=== PATIENT | female | born 1980 | race African-American/Black ===

== ENCOUNTER 2021-07-20 01:41 | Emergency (ER) | payer OTHER ==
[~2021-07-20] VITALS: Ht 152.4 cm; Wt 70.0 kg
[~2021-07-20 01:41] MED LIST: SEE MED SHEET
[2021-07-20] MEDS ORDERED: HYDROCODONE/ACETAMINOPHEN 5/325MG TABLET PO STA (03:16)
[2021-07-20] MEDS ORDERED: PROCHLORPERAZINE 10MG/2ML VIAL IM ONE (03:30)
[2021-07-20] MEDS ORDERED: DIPHENHYDRAMINE 50MG/ML VIAL IV ONE (04:00)
[2021-07-20] MEDS ORDERED: PROCHLORPERAZINE 10MG/2ML VIAL IV PRN (04:00)
[2021-07-20] MEDS ORDERED: KETOROLAC 30MG/ML VIAL IV ONE (04:00)
[2021-07-20] MEDS ORDERED: MAGNESIUM 2 G PREMIX 50 ML IV ONE (04:00)
[2021-07-20 04:08] LABS: BASOPHILS % 0.7 % (0.0-2.0); EOSINOPHILS % 0.5 % (0.0-5.0); HEMATOCRIT. 35.4 % (36.0-48.0); HEMOGLOBIN. 12.3 g/dL (12.0-16.0); LYMPHOCYTES % 32.9 % (20.0-50.0); MEAN CORPUSCULAR HEMOGLOBIN 31.5 pg (28.0-32.0); MEAN CORPUSCULAR VOLUME 90.7 fL (81.0-99.0); MONOCYTES % 6.4 % (2.0-8.0); NEUTROPHILS % 59.5 % (40.0-76.0); PLATELET 342 x1000/uL (130-400); RED CELL DISTRIBUTION WIDTH 12.8 % (11.6-14.6)
[2021-07-20 04:18] LABS: CHLORIDE 108 mEq/L (98-107); PROTHROMBIN TIME 10.8 sec (9.6-11.0)
[2021-07-20] MEDS ORDERED: FENTANYL CITRATE/PF 50MCG/ML 2ML VIAL IV ONE (05:45)
[2021-07-20] MEDS ORDERED: COM10 MT (06:18)
[2021-07-20] MEDS ORDERED: IBUP-2030 MT (06:18)
[2021-07-20] MEDS ORDERED: IMIT50 MT (06:23)
[2021-07-20 07:25] VITALS: BP 125/68
== END 2021-07-20 07:27 | disposition home or self-care (01) ==
LOC: ER 01:41
DX: G43.909 Migraine, unspecified, not intractable, without status migrainosus (principal); Z88.6 Allergy status to analgesic agent; Z90.49 Acquired absence of other specified parts of digestive tract; Z90.710 Acquired absence of both cervix and uterus; Z91.040 Latex allergy status; Z91.018 Allergy to other foods
CPT/HCPCS: 36415; 80053; 85025; 85610; 96365; 96375; 99284; J1200; J1885; J3010; J3475; J0780